=== PATIENT | male | born 1980 | race Two or more races ===

== ENCOUNTER 2017-04-01 08:49 | Emergency (ER) | payer SELFPAY ==
[2017-04-01 08:55] VITALS: BP 158/88; PULSE 92; RESP 18; TEMP 98.1; O2SAT 97
--- NOTE | 2017-04-01 09:10 | EDPHY ---
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 Nontender. No fever or chills. No nausea or vomiting. No flu-like symptoms. No genitalia lesions. No GI complaints. No ocular complaints. No medications. REVIEW OF SYSTEMS: A ten point review of systems was performed and is negative with the exception of the items mentioned in the HPI PAST MEDICAL & SURGICAL HISTORY: No pertinent medical or surgical history SOCIAL HISTORY: FAMILY HISTORY: No pertinent family history PHYSICAL EXAM (Prior to examination, patient consented to physical exam, hands were washed and my usual and customary physical exam procedures followed) 1) GENERAL: Well-developed, well-nourished, alert and oriented. Appears to be in no acute distress. 2) HEAD: Normocephalic, atraumatic 3) HEENT: Sclera anicteric. 4) NECK: Full range of motion, no meningeal signs. 5) LUNGS: Clear auscultation bilaterally 6) HEART: Regular rate and rhythm, no murmur, no heave, no gallop. 7) ABDOMEN: No guarding, no rebound, no focal tenderness, 8) MUSCULOSKELETAL: Moving all extremities, no focal areas of tenderness, no obvious trauma. No peripheral edema or discoloration. 9) BACK: no rash, no visual or palpable abnormality. 10) SKIN: On the patient's left axilla he has an intertriginous excoriated nontender non vesicular erythematous lesion. He has a few discrete lesions just cephalad to this. These do not appear consistent with cellulitis. DIFFERENTIAL DIAGNOSIS: in no particular order including but not limited to Meeks-Emile, cellulitis, necrotizing fasciitis, contact dermatitis Smoking Status: Never smoked Constitutional: Initial Vital Signs Temperature (C) 36.7 C 04/01/17 08:51 Heart Rate 92 04/01/17 08:51 Respiratory Rate 18 04/01/17 08:51 Blood Pressure 158/88 H 04/01/17 08:51 O2 Sat (%) 97 04/01/17 08:51 O2 Delivery Mode Room Air Allergies/Adverse Reactions: No Known Allergies Allergy (Unverified 04/01/17 08:55) Home Medications: Medication Instructions Recorded Hydrocortisone 0.5% 15 gm TP BID #15 g 04/01/17 [Hydrocortisone 0.5% cream (*)] MDM/Departure - [facility] ED Course/Re-evaluation: Patient denies discussed more than likely contact dermatitis etiology. Recommended avoiding deodorants and anti per sprints for at least 1 week. I am prescribing topical hydrocortisone. Recommended oral Benadryl. I do not think that this area is infected. I doubt cellulitis. Doubt Meeks-Emile. I do not think that the benefits of oral steroids outweigh the risks in this localized rash. Usual customary dermatologic precautions instructions provided - Depart Disposition: Home, Routine, Self-Care Clinical Impression: Contact dermatitis Qualifiers: Contact dermatitis type: irritant Contact dermatitis trigger: unspecified trigger Qualified Code(s): L24.9 - Irritant contact dermatitis, unspecified cause Condition: Good Instructions: Contact Dermatitis (ED) Additional Instructions: Return to the ER if you develop fevers, if you feel sick, if you develop rash in your mouth, genitals or any other symptoms that concern you Prescriptions: Hydrocortisone 0.5% [Hydrocortisone 0.5% cream (*)] 15 gm TP BID #15 g Referrals: [facility],. [Clinic] - 5-7 days, call for appt. Print Language: Citizen [place]
== END 2017-04-01 09:18 | disposition home or self-care (01) ==
DX: L24.9 Irritant contact dermatitis, unspecified cause (principal)